=== PATIENT | female | born 1980 | race Native Hawaiian/Other Pacific Islander ===

== ENCOUNTER 2017-07-23 14:06 | Observation (INO) | payer MEDICAID ==
[~2017-07-23] VITALS: Ht 180.3 cm; Wt 129.3 kg
[~2017-07-23 14:06] MED LIST: ALBUPOW26
[2017-07-23] MEDS ORDERED: SODIUM CHLORIDE 0.9% 1,000 ML IVB ONE (14:48)
[2017-07-23] MEDS ORDERED: diphenhdrAMINE HCL 50 MG/1 ML VL IV ONE (15:00)
[2017-07-23] MEDS ORDERED: FAMOTIDINE (10MG/ML) 2ML VL IV ONE (15:00)
[2017-07-23] MEDS ORDERED: methylPREDNISolone SOD SUCC 125 MG/2 ML VL IV ONE ×2 (15:00→18:45)
[2017-07-23 15:36] LABS: Basophils # (auto) 0 uL; Basophils % (auto) 0.3 % (0.0-2.0); Eosinophils # (auto) 0 uL; Eosinophils % (auto) 0.3 % (0.0-7.0); Hemoglobin 12.3 g/dL (12.2-16.2); Monocytes # (auto) 0.4 uL; Neutrophils # (auto) 6.8 uL
[2017-07-23 15:38] LABS: Hematocrit 37.9 % (36.0-46.0); Lymphocytes % (auto) 12.1 % (10.0-50.0); Mean Corpuscular Hemoglobin 24.7 pg (28.0-32.0); Mean Corpuscular Hgb Conc. 32.5 g/dL (32.0-36.0); Mean Corpuscular Volume 76.2 fL (80.0-100.0); Mean Platelet Volume 7.7 fL (6.9-10.8); Neutrophils % (auto) 82.3 % (37.0-80.0); Nucleated Red Blood Cells % 0.2 %; Platelet Count (auto) 352 10^3/uL (140-450); Red Cell Distribution Width 16.8 % (11.8-14.3); White Blood Cell 8.3 10^3/uL (4.4-10.8)
[2017-07-23 15:49] LABS: INR 1.02 (0.9-1.15); Partial Thromboplastin Time 28.6 sec (22.64-33.71); Prothrombin Time 11.1 sec (9.37-12.3)
[2017-07-23 15:58] LABS: Albumin 3.8 g/dL (3.4-5.0); BUN/Creatinine Ratio 15.9; Bilirubin, Total 0.4 mg/dL (0.2-1.0); Calcium 8.9 mg/dL (8.5-10.1); Magnesium 2.1 mg/dL (1.6-2.6); Total Protein 8.5 g/dL (6.4-8.2)
[2017-07-23 19:05] VITALS: BP 125/68
== END 2017-07-23 21:34 | disposition home or self-care (01) | DRG 812 ==
LOC: EDBD 14:06 → ER 14:10 → OVERFLOW 15:02 → ER 21:34
PROVIDERS: ADMIT Family Medicine; ATTEND Family Medicine
DX: T50.995A Adverse effect of other drugs, medicaments and biological substances, initial encounter (principal); R13.10 Dysphagia, unspecified; R06.02 Shortness of breath; F41.9 Anxiety disorder, unspecified; L50.9 Urticaria, unspecified; Y92.89 Other specified places as the place of occurrence of the external cause; Z98.84 Bariatric surgery status
CPT/HCPCS: 36415; 71010; 80053; 83735; 84702; 85025; 85610; 85730; 93005; 96361; 96374; 96375; 99291; G0378; J1200; J2930; J3490; J7030

== ENCOUNTER 2017-12-25 21:33 | Inpatient (IN) | payer MEDICAID ==
[~2017-12-25] VITALS: Ht 180.3 cm; Wt 130.0 kg
[2017-12-25 22:28] LABS: Eosinophils # (auto) 0.2 uL; Hemoglobin 9.4 g/dL (12.2-16.2); Monocytes # (auto) 0.4 uL; Neutrophils # (auto) 3.5 uL; Red Cell Distribution Width 16.6 % (11.8-14.3)
[2017-12-25 22:29] LABS: Basophils # (auto) 0.1 uL; Basophils % (auto) 0.9 % (0.0-2.0); Eosinophils % (auto) 3.3 % (0.0-7.0); Hematocrit 29.9 % (36.0-46.0); Lymphocytes # (auto) 2.3 uL; Lymphocytes % (auto) 35.3 % (10.0-50.0); Mean Corpuscular Hgb Conc. 31.5 g/dL (32.0-36.0); Monocytes % (auto) 5.8 % (0.0-12.0); Neutrophils % (auto) 54.7 % (37.0-80.0); Nucleated Red Blood Cells % 0.4 %; Platelet Count (auto) 305 10^3/uL (140-450); White Blood Cell 6.5 10^3/uL (4.4-10.8)
[2017-12-25 22:45] LABS: Albumin 3.6 g/dL (3.4-5.0); Amylase 41 U/L (25-115); Anion Gap 10 (5-15); Blood Urea Nitrogen 13 mg/dL (7-18); Calcium 8.5 mg/dL (8.5-10.1); Carbon Dioxide 22 mmol/L (21-32); Chloride 111 mmol/L (98-107); GFR African American 102 mL/min; GFR Non-African American 84 mL/min; Glucose 95 mg/dL (74-106); Lipase 168 U/L (73-393); Magnesium 2.2 mg/dL (1.6-2.6); Potassium 3.7 mmol/L (3.5-5.1); Sodium 143 mmol/L (136-145)
[2017-12-25 22:52] LABS: Alanine Aminotransferase 15 U/L (13-56); Alkaline Phosphatase 58 U/L (45-117); Aspartate Aminotransferase 10 U/L (15-37); Bilirubin, Total 0.5 mg/dL (0.2-1.0); Total Protein 7.8 g/dL (6.4-8.2)
[2017-12-26 01:03] LABS: Urine Bacteria NONE SEEN /hpf (None Seen); Urine Blood Negative /uL (Negative); Urine Mucus FEW (None Seen); Urine Specific Gravity 1.031 (1.001-1.035); Urine WBC 3 /hpf (0 - 5)
[2017-12-26] MEDS ORDERED: cefTRIAXone 1GM/10ml IVPUSH 10 ML IV ONE ×2 (02:45→02:50)
[2017-12-26] MEDS ORDERED: MORPHINE SULFATE 4 MG/ML SYR/VIAL IV ONE (03:00)
[2017-12-26] MEDS ORDERED: ONDANSETRON HCL 4 MG/2 ML VIAL IV ONE (03:15)
[2017-12-26] MEDS ORDERED: NITROGLYCERIN 0.4 MG SL TAB SL PRN (07:30)
[2017-12-26] MEDS ORDERED: TEMAZEPAM 15 MG CAP PO PRN (07:30)
[2017-12-26] MEDS ORDERED: HYDROcodone-ACET 5/325MG TAB PO PRN (07:30)
[2017-12-26] MEDS ORDERED: ACETAMINOPHEN 325 MG TAB PO PRN (07:30)
[2017-12-26] MEDS ORDERED: ATORVASTATIN 20 MG TAB PO ONE (07:30)
[2017-12-26] MEDS ORDERED: ALBUTEROL SULF 2.5 MG/0.5ML(0.5%) NEB SOLN NEB PRN (07:30)
[2017-12-26] MEDS: ONDANSETRON HCL 4 MG/2 ML VIAL IV PRN ×3 (07:34→18:12)
[2017-12-26] MEDS: FERROUS SULFATE 325 MG TAB PO SCH ×2 (08:11→18:12)
[2017-12-26 09:04] LABS: Cholesterol 113 mg/dL (< 200); HDL Cholesterol 36 mg/dL (40-59); LDL Cholesterol 79 mg/dL (< 100); Triglycerides 79 mg/dL (< 150)
[2017-12-26 09:12] VITALS: BP 122/64
[2017-12-26] MEDS: ASPirin 81 mg TAB PO SCH (10:00)
[2017-12-26] MEDS: FAMOTIDINE 20 MG TAB PO SCH ×2 (10:17→21:21)
[2017-12-26] MEDS: ENOXAPARIN SOD 40 MG/0.4 ML SYRINGE SC SCH (10:17)
[2017-12-26] MEDS: TRIAMTERENE/HCTZ 37.5/25 MG CAP PO SCH (10:17)
[2017-12-26] MEDS: MORPHINE SULFATE 4 MG/ML SYR/VIAL IV PRN ×2 (11:42→18:46)
[2017-12-26] MEDS ORDERED: SCOP1DIS4 TD (12:17)
[2017-12-26] MEDS ORDERED: CHOL20007 PO (12:17)
[2017-12-26] MEDS ORDERED: BIOT50006 PO (12:17)
[2017-12-26] MEDS ORDERED: OMEP20TA PO (12:17)
[2017-12-26] MEDS ORDERED: PANT40T PO (12:17)
[2017-12-26] MEDS ORDERED: PREN-96 PO (12:17)
[2017-12-26] MEDS ORDERED: TEMA15CA91 PO (12:17)
[2017-12-26] MEDS ORDERED: DOCU-94 PO (12:17)
[2017-12-26] MEDS ORDERED: ONDA8TAB6 PO (12:17)
[2017-12-26] MEDS ORDERED: TRAM50TA2 PO (12:17)
[2017-12-26] MEDS ORDERED: FAMO-12 PO (12:17)
[2017-12-26] MEDS ORDERED: HYDR-4683 PO (12:17)
[2017-12-26] MEDS ORDERED: LACTCAP35 PO (12:17)
[2017-12-26] MEDS ORDERED: DIPH25CA66 PO (12:17)
[2017-12-26] MEDS ORDERED: SUCR1TAB38 PO (12:17)
[2017-12-26] MEDS ORDERED: POTA10TA51 PO (12:17)
[2017-12-26 13:00] VITALS: BP 101/66
[2017-12-26 18:02] VITALS: BP 109/68
[2017-12-26] MEDS ORDERED: ATORVASTATIN 20 MG TAB PO SCH (22:00)
[2017-12-26 22:32] VITALS: BP 101/66
[2017-12-27] MEDS ORDERED: cefTRIAXone 1GM/10ml IVPUSH 10 ML IV SCH (03:00)
[2017-12-27 05:23] VITALS: BP 122/61
[2017-12-27 05:31] LABS: Basophils # (auto) 0 uL; Eosinophils # (auto) 0.2 uL; Eosinophils % (auto) 3.5 % (0.0-7.0); Lymphocytes # (auto) 2.2 uL; Monocytes # (auto) 0.3 uL; Red Cell Distribution Width 16.7 % (11.8-14.3); White Blood Cell 5.3 10^3/uL (4.4-10.8)
[2017-12-27 05:34] LABS: Basophils % (auto) 0.6 % (0.0-2.0); Hematocrit 29.1 % (36.0-46.0); Hemoglobin 9.2 g/dL (12.2-16.2); Lymphocytes % (auto) 41.3 % (10.0-50.0); Mean Corpuscular Hemoglobin 23.1 pg (28.0-32.0); Mean Corpuscular Hgb Conc. 31.7 g/dL (32.0-36.0); Mean Corpuscular Volume 72.8 fL (80.0-100.0); Monocytes % (auto) 6.6 % (0.0-12.0); Neutrophils # (auto) 2.5 uL; Nucleated Red Blood Cells % 0.3 %; Platelet Count (auto) 282 10^3/uL (140-450); Red Blood Cells 3.99 10^6/uL (4.0-5.20)
[2017-12-27 05:52] LABS: Albumin 3.5 g/dL (3.4-5.0); Potassium 3.8 mmol/L (3.5-5.1)
[2017-12-27 05:55] LABS: BUN/Creatinine Ratio 7.7
[2017-12-27 06:10] LABS: Bilirubin, Total 0.4 mg/dL (0.2-1.0); Total Protein 7.3 g/dL (6.4-8.2)
[2017-12-27] MEDS: FERROUS SULFATE 325 MG TAB PO SCH (08:14)
[2017-12-27 09:00] VITALS: BP 135/70
[2017-12-27] MEDS: ASPirin 81 mg TAB PO SCH (10:14)
[2017-12-27] MEDS: TRIAMTERENE/HCTZ 37.5/25 MG CAP PO SCH (10:15)
[2017-12-27] MEDS: ENOXAPARIN SOD 40 MG/0.4 ML SYRINGE SC SCH (10:16)
[2017-12-27] MEDS: FAMOTIDINE 20 MG TAB PO SCH (10:34)
[2017-12-27] MEDS: MORPHINE SULFATE 4 MG/ML SYR/VIAL IV PRN ×2 (10:35→10:37)
[2017-12-27 12:42] VITALS: BP 122/66
== END 2017-12-27 13:50 | disposition home or self-care (01) | DRG 203 ==
LOC: EDBD 21:33 → ER 21:33 → TELE 21:34 → TELE-WESTW 12-26 10:55
PROVIDERS: ADMIT Nurse Practitioner; ATTEND Internal Medicine
DX: R07.89 Other chest pain (principal); Z68.41 Body mass index [BMI] 40.0-44.9, adult; I10 Essential (primary) hypertension; F41.9 Anxiety disorder, unspecified; E66.01 Morbid (severe) obesity due to excess calories; D50.9 Iron deficiency anemia, unspecified; J45.909 Unspecified asthma, uncomplicated; Z98.84 Bariatric surgery status; Z88.8 Allergy status to other drugs, medicaments and biological substances; Z88.5 Allergy status to narcotic agent; Z88.1 Allergy status to other antibiotic agents; Z79.82 Long term (current) use of aspirin; Z79.899 Other long term (current) drug therapy
CPT/HCPCS: 36415; 71045; 80053; 80061; 81001; 81025; 82150; 83690; 83735; 84484; 85025; 85379; 93005; 93306; 94761; 96372; 96374; 96375; 96376; J2405

== ENCOUNTER 2018-08-12 19:28 | Emergency (ER) | payer MEDICAID ==
[~2018-08-12] VITALS: Ht 180.3 cm; Wt 104.3 kg
[~2018-08-12 19:28] MED LIST changes: -ALBUPOW26; +BIOT50006 PO; +CHOL20007 PO; +DIPH25CA66 PO; +DOCU-94 PO; +FAMO-12 PO; +HYDR-4683 PO; +LACTCAP35 PO; +OMEP20TA PO; +ONDA-143 PO; +PANT40T PO; +POTA10TA51 PO; +PREN-96 PO; +SCOP1DIS4 TD; +SUCR1TAB38 PO; +TEMA15CA91 PO; +TRAM50TA2 PO
[2018-08-12 19:50] VITALS: BP 120/90
== END 2018-08-12 20:05 | disposition left against medical advice (07) ==
LOC: EDBD 19:28 → ER 19:28
DX: R55 Syncope and collapse (principal); Z53.21 Procedure and treatment not carried out due to patient leaving prior to being seen by health care provider
CPT/HCPCS: 93005

== ENCOUNTER 2019-09-18 01:22 | Emergency (ER) | payer MEDICAID ==
[~2019-09-18] VITALS: Ht 180.3 cm; Wt 101.2 kg
[~2019-09-18 01:22] MED LIST changes: -HYDR-4683 PO; +HYDR-4833 PO; -SCOP1DIS4 TD; +SCOP1DIS9 TD
[2019-09-18 01:35] VITALS: BP 114/68
[2019-09-18 03:00] LABS: Urine Bacteria FEW /hpf (None Seen); Urine Blood 1+ /uL (Negative); Urine Mucus FEW (None Seen); Urine Specific Gravity 1.033 (1.001-1.035); Urine WBC 6 /hpf (0 - 5)
[2019-09-18] MEDS ORDERED: KETOROLAC TROMETH 60MG/2ML VIAL IM ONE (03:45)
== END 2019-09-18 03:51 | disposition home or self-care (01) ==
LOC: ER 01:23
DX: N39.0 Urinary tract infection, site not specified (principal); M54.5 Low back pain; J45.909 Unspecified asthma, uncomplicated; I10 Essential (primary) hypertension; Z79.899 Other long term (current) drug therapy; Z88.8 Allergy status to other drugs, medicaments and biological substances; Z88.6 Allergy status to analgesic agent
CPT/HCPCS: 81001; 81025; 96372; 99283; J1885

== ENCOUNTER 2019-09-18 05:33 | Emergency (ER) | payer MEDICAID ==
[~2019-09-18] VITALS: Ht 180.3 cm; Wt 101.2 kg
[2019-09-18 10:10] LABS: Eosinophils # (auto) 0.1 uL; Eosinophils % (auto) 2.9 % (0.0-7.0); Lymphocytes # (auto) 1.6 uL; Red Blood Cells 4.18 10^6/uL (4.0-5.20)
[2019-09-18 10:12] LABS: Basophils # (auto) 0 uL; Hematocrit 31.8 % (36.0-46.0); Hemoglobin 9.8 g/dL (12.2-16.2); Lymphocytes % (auto) 41.2 % (10.0-50.0); Mean Corpuscular Hemoglobin 23.5 pg (28.0-32.0); Mean Corpuscular Hgb Conc. 30.9 g/dL (32.0-36.0); Mean Corpuscular Volume 76.1 fL (80.0-100.0); Monocytes # (auto) 0.2 uL; Monocytes % (auto) 6.3 % (0.0-12.0); Neutrophils # (auto) 1.9 uL; Neutrophils % (auto) 48.6 % (37.0-80.0); Nucleated Red Blood Cells % 0.2 %; Platelet Count (auto) 318 10^3/uL (140-450)
[2019-09-18 10:18] LABS: Red Cell Distribution Width 22.6 % (11.8-14.3)
[2019-09-18 10:27] LABS: Albumin 4.2 g/dL (3.4-5.0); Calcium 9.1 mg/dL (8.5-10.1); Potassium 4.2 mmol/L (3.5-5.1)
[2019-09-18 10:31] LABS: BUN/Creatinine Ratio 24.4; Bilirubin, Total 0.5 mg/dL (0.2-1.0)
[2019-09-18] MEDS ORDERED: HYDROcodone-ACET 5/325MG TAB PO ONE (12:00)
[2019-09-18 12:18] VITALS: BP 107/67
== END 2019-09-18 12:30 | disposition home or self-care (01) ==
LOC: ER 05:33
DX: K64.9 Unspecified hemorrhoids (principal); D64.9 Anemia, unspecified; Z88.8 Allergy status to other drugs, medicaments and biological substances
CPT/HCPCS: 36415; 74176; 80053; 85025

== ENCOUNTER 2023-08-09 19:45 | Emergency (ER) | payer MEDICAID ==
[~2023-08-09] VITALS: Ht 180.3 cm; Wt 100.5 kg
[~2023-08-09 19:45] MED LIST changes: +SUCR1TAB22 PO; -SUCR1TAB38 PO; +TEMA15CA2 PO; -TEMA15CA91 PO
[2023-08-09 20:01] VITALS: BP 101/63; PULSE 105; RESP 22; O2SAT 94
[2023-08-09 20:57] LABS: Basophils # (auto) 0 10 ^3/uL (0-0.2); Basophils % (auto) 0.2 % (0.0-2.0); Eosinophils # (auto) 0 10 ^3/uL (0-0.8); Eosinophils % (auto) 0.2 % (0.0-7.0); Hematocrit 38.1 % (36.0-46.0); Hemoglobin 12.6 g/dL (12.2-16.2); Lymphocytes # (auto) 1.1 10 ^3/uL (0.4-5.4); Lymphocytes % (auto) 11.1 % (10.0-50.0); Mean Corpuscular Hemoglobin 29.1 pg (28.0-32.0); Mean Corpuscular Volume 88.1 fL (80.0-100.0); Monocytes # (auto) 0.4 10 ^3/uL (0-1.3); Monocytes % (auto) 4.6 % (0.0-12.0); Neutrophils # (auto) 8.1 10 ^3/uL (1.6-8.6); Neutrophils % (auto) 83.9 % (37.0-80.0); Nucleated Red Blood Cells % 0.1 %; Red Blood Cells 4.32 10^6/uL (4.0-5.20); Red Cell Distribution Width 13.3 % (11.8-14.3); White Blood Cell 9.6 10^3/uL (4.4-10.8)
[2023-08-09 21:17] LABS: Alanine Aminotransferase 15 U/L (7-40); Albumin 4.5 g/dL (3.2-4.8); Alkaline Phosphatase 55 U/L (46-116); Anion Gap 11 (5-15); Aspartate Aminotransferase 18 U/L (13-40); BUN/Creatinine Ratio 19.1 (10.0-20.0); Blood Urea Nitrogen 13 mg/dL (9-23); Calcium 9.1 mg/dL (8.7-10.4); Carbon Dioxide 19 mmol/L (20-30); Chloride 105 mmol/L (98-107); Glucose 103 mg/dL (74-106); Lipase 41 U/L (12-53); Potassium 3.9 mmol/L (3.5-5.1); Sodium 135 mmol/L (136-145)
[2023-08-09 21:18] LABS: Bilirubin, Total 0.8 mg/dL (0.2-1.0); Total Protein 7.7 g/dL (5.7-8.2)
== END 2023-08-10 02:11 | disposition left against medical advice (07) ==
LOC: ER 19:45 → EDBD 19:45 → ER 08-10 02:11
DX: R10.9 Unspecified abdominal pain (principal); R10.2 Pelvic and perineal pain; R11.2 Nausea with vomiting, unspecified; Z53.21 Procedure and treatment not carried out due to patient leaving prior to being seen by health care provider
CPT/HCPCS: 36415; 80053; 83690; 84702; 85025; 93005

== ENCOUNTER 2024-04-22 12:32 | Emergency (ER) | payer MEDICAID ==
[~2024-04-22] VITALS: Ht 177.8 cm; Wt 105.0 kg
[~2024-04-22 12:32] MED LIST changes: +POTA-36 PO; -POTA10TA51 PO; -SUCR1TAB22 PO; +SUCR1TAB31 PO
[2024-04-22 12:40] VITALS: BP 136/80; PULSE 84; RESP 12; O2SAT 99
== END 2024-04-22 14:05 | disposition left against medical advice (07) ==
LOC: ER 12:32 → EDBD 12:32 → ER 14:05
DX: R10.9 Unspecified abdominal pain (principal); R11.2 Nausea with vomiting, unspecified; Z53.21 Procedure and treatment not carried out due to patient leaving prior to being seen by health care provider